=== PATIENT | female | born 1995 | race Caucasian/White ===

== ENCOUNTER → 2018-03-15 | Outpatient (CLI) | payer BC | LOC: SUN.DIA 08:25 | DX: O24.419 Gestational diabetes mellitus in pregnancy, unspecified control (principal); Z3A.32 32 weeks gestation of pregnancy | CPT/HCPCS: G0108 ==

== ENCOUNTER → 2018-03-26 | Outpatient (CLI) | payer BC | LOC: SUN.DIA 10:09 | DX: O24.419 Gestational diabetes mellitus in pregnancy, unspecified control (principal); Z3A.34 34 weeks gestation of pregnancy | CPT/HCPCS: G0108 ==

== ENCOUNTER → 2018-04-16 | Outpatient (CLI) | payer BC | LOC: SUN.DIA 08:25 | DX: O24.419 Gestational diabetes mellitus in pregnancy, unspecified control (principal); Z3A.36 36 weeks gestation of pregnancy | CPT/HCPCS: G0108 ==

== ENCOUNTER → 2018-05-02 | Outpatient (CLI) | payer BC | LOC: SUN.DIA 15:12 | DX: O24.419 Gestational diabetes mellitus in pregnancy, unspecified control (principal); Z3A.38 38 weeks gestation of pregnancy | CPT/HCPCS: G0108 ==

== ENCOUNTER 2018-05-20 07:18 | Inpatient (IN) | payer OTHER, BC ==
[2018-05-20] VITALS (44 sets, daily range): BP systolic 62–170; BP diastolic 32–103; PULSE 46–139; TEMP 98.1–998.3
[~2018-05-20] VITALS: Ht 154.9 cm; Wt 80.5 kg
[2018-05-20] MEDS ORDERED: PRENATAL 191 CTB PO (08:03)
[2018-05-20] MEDS ORDERED: PROFE180 MG PO (08:04)
[2018-05-20 08:36] LABS: BASO # 0.1 (0.0-0.2); BASO % 0.5 % (0.0-2.0); EOS # 0.1 (0.0-0.7); EOS % 0.5 % (0-4.0); GRAN # 7.8 (1.4-6.5); GRAN % 70.5 % (42.2-75.2); HEMATOCRIT 38.4 % (37.0-47.0); HEMOGLOBIN 13.1 g/dl (12.5-16.0); LYMPH # 2.3 (1.2-3.4); MEAN CELL VOLUME 84 fl (80.0-100.0); MEAN CORPUSCULAR HEMOGLOBIN 29 pg (27.0-31.0); MEAN CORPUSCULAR HGB CONC 34 g/dl (33.0-37.0); MEAN PLATELET VOLUME 10.9 fl (7.4-10.4); MONO # 0.8 (0.1-0.6); MONO % 6.9 % (1.7-9.3); PLATELET COUNT 204 K/mm3 (130-400); RED BLOOD COUNT 4.56 M/mm3 (4.10-5.30); REDCELL DISTRIBUTION WIDTH-CV 17.8 % (11.5-14.5)
[2018-05-21] VITALS (9 sets, daily range): BP systolic 104–163; BP diastolic 57–106; PULSE 65–89; TEMP 97.4–98.4
[2018-05-21] MEDS ORDERED: PERCOCET 325 MG1 TA2 PO (11:40)
[2018-05-21] MEDS ORDERED: MOTRIN 800800 MG/TAB PO (11:40)
[2018-05-22 08:15] VITALS: BP 125/84; PULSE 66
== END 2018-05-22 11:25 | disposition home or self-care (01) | DRG 807 ==
LOC: LDR 07:18 → OB 05-21 04:04
PROVIDERS: Obstetrics & Gynecology
PROC: 10E0XZZ Delivery of Products of Conception, External Approach (ICD-10-PCS; principal; 2018-05-20)
PROC: 3E033VJ Introduction of Other Hormone into Peripheral Vein, Percutaneous Approach (ICD-10-PCS; 2018-05-20)
PROC: 10907ZC Drainage of Amniotic Fluid, Therapeutic from Products of Conception, Via Natural or Artificial Opening (ICD-10-PCS; 2018-05-20)
DX: O24.420 Gestational diabetes mellitus in childbirth, diet controlled (principal); Z37.0 Single live birth; Z3A.39 39 weeks gestation of pregnancy; O75.89 Other specified complications of labor and delivery
CPT/HCPCS: J2210; J2590; J2795; J7120